=== PATIENT | male | born 1930 | race Caucasian/White ===

== ENCOUNTER 2018-11-18 01:48 | Inpatient (IN) ==
[2018-11-18] MEDS ORDERED: NITROGLYCERIN TOP ONE (02:00)
[2018-11-18] MEDS ORDERED: LASIX IV ONE (02:00)
--- NOTE | 2018-11-18 02:06 | PROVIDER DOCUMENTATION ---
HPI-Respiratory General - General Chief Complaint: Shortness of Breath Stated Complaint: TROUBLE BREATHING Time Seen by Provider: 11/18/18 01:55 Source: patient Allergies/Adverse Reactions: Patient Allergies Allergy/AdvReac Type Severity Reaction Status Date / Time Sulfa (Sulfonamide Allergy Severe Unknown Verified 12/30/16 16:11 Antibiotics) Home Medications: Home Medication List Medication Instructions Recorded Confirmed Last Taken Type Losartan/Hydrochlorothiazide 1 each PO DAILY 04/14/14 07/18/18 05/07/17 History [Losartan-Hctz 100-25 mg Tab] Omeprazole 20 mg PO DAILY 04/14/14 07/18/18 05/07/17 History Tamsulosin [Flomax] 0.4 mg PO DAILY 04/14/14 07/18/18 05/07/17 History Trazodone [Desyrel] 75 mg PO QHS 03/19/15 07/18/18 05/07/17 History Alprazolam 1 mg PO TID 02/26/16 07/18/18 05/07/17 History Diltiazem HCl [Cardizem Cd] 360 mg PO DAILY 12/30/16 07/18/18 05/07/17 History Furosemide [Lasix] 20 mg PO PRN PRN 12/30/16 07/18/18 05/07/17 History Nitroglycerin [Nitrostat] 0.4 mg SL PRN PRN 12/30/16 07/18/18 05/07/17 History Polyethylene Glycol 3350 [Miralax] 17 gm PO DAILY 12/30/16 07/18/18 05/07/17 History Potassium Chloride E.r. [Klor-Con] 10 meq PO PRN PRN 12/30/16 07/18/18 05/07/17 History Rivaroxaban [Xarelto] 10 mg PO DAILY 12/30/16 07/18/18 05/07/17 History Albuterol Sulfate [Proair Hfa] 1 puff INH PRN PRN 07/18/18 07/18/18 Unknown History Cetirizine [Zyrtec] 10 mg PO DAILY 07/18/18 07/18/18 Unknown History Dextran/Hypromellose/Glycerin 1 drop BOTH EYES HS 07/18/18 07/18/18 Unknown History [Genteal Tears 0.1%-0.2%-0.3%] Fluticasone 50 Mcg Nasal [place] 1 spray KD DAILY 07/18/18 07/18/18 Unknown History [Flonase] Hydrocodone/Acetaminophen [[place] 0.5 tab PO PRN PRN 07/18/18 07/18/18 Unknown History 5-325 Tablet] - History of Present Illness-Resp Nature of Presenting Problem: Patient is a 88 year old white male with history of atrial fibrillation, CHF, CAD,HTN, dementia, hearing loss, and kidney disease, followed by Dr. Sidhu and Dr. Wilkerson who presents with increasing shortnes of breath, leg swelling, and orthopnea since yesterday. Denies chest pain. Quality of Pain: reports: none Onset/Duration: reports: 24 hours ago Timing: reports: getting worse Cough Quality/Degree: reports: no cough Similar Symptoms Previously?: Yes Recently seen or treated by another doctor?: Yes (Dr. Sidhu) Review of Systems - Adult - REVIEW OF SYSTEMS - ADULT Constitutional: denies: chills, fever Eyes: reports: no symptoms reported Ears, Nose, Mouth & Throat: reports: no symptoms reported Cardiovascular: reports: edema, orthopnea. denies: chest pain Respiratory: reports: shortness of breath Gastrointestinal: reports: no symptoms reported Genitourinary: reports: no symptoms reported Musculoskeletal: reports: no symptoms reported Integumentary: reports: no symptoms reported Neurological: reports: no symptoms reported Psychiatric: reports: see HPI Endocrine: reports: no symptoms reported Hematologic/Lymphatic: reports: no symptoms reported Allergic/Immunologic: reports: no symptoms reported All Other Systems: Reviewed and Negative Past History - Adult - PAST MEDICAL HISTORY-ADULT Review of Records: reports: Old Records Reviewed, Nursing Assessment Review, Medications Reviewed, Social history reviewed & non-contributory. Major Childhood Illnesses: reports: denies history Cardiovascular: reports: A-Fib, CHF, HTN Respiratory: reports: denies history Gastrointestinal: reports: denies history Obstetrical/Gynecological: reports: denies history Genitourinary: reports: kidney disease, prostate cancer Musculoskeletal: reports: denies history Neurological: reports: denies history Psychiatric: reports: anxiety Endocrine/Immune: reports: cancer Other Conditions: reports: denies history - PRIOR SURGERIES/PROCEDURES Surgical/Procedure History: reports: CABG, other - PRIOR HOSPITALIZATIONS Prior Hospitalizations: reports: for other non-related - IMMUNIZATION STATUS Childhood Immunizations: See Nurse Assessment Flu Vaccine: See Nurse Assessment - FAMILY HISTORY Family History: reviewed, not pertinent Physical Exam-General - CONSTITUTIONAL General Appearance: alert, no apparent distress, other (nondiaphoretic) - EYES Eyes: other (clear) - HEAD, EARS, NOSE, MOUTH & THROAT HENMT: moist mucous membranes - NECK Neck: supple - RESPIRATORY Respiratory: no accessory muscle use, decreased breath sounds, rales, wheezing - CARDIOVASCULAR Cardiovascular: irregularly irregular - GASTROINTESTINAL (ABDOMEN) Abdominal Exam: normal bowel sounds, non tender, soft - MUSCULOSKELETAL Back Exam: normal inspection Extremity: non-tender, swelling Peripheral Pulses: radial (R): 2+ - SKIN Integumentary: warm/dry - NEUROLOGIC Neurologic: other (nonfocal, uncooperative to exam) - PSYCHIATRIC Psych/Mental Status: anxious, other (demented) Progress - PLAN OF CARE/RESULTS Progress/Plan/Lab Results: Vital Signs - 8 hr 11/18/18 02:00 Temperature 98.8 F Pulse Rate 92 H Respiratory Rate 22 Blood Pressure 171/124 O2 Sat by Pulse Oximetry 88 L Laboratory Results - last 24 hr 11/18/18 11/18/18 11/18/18 02:13 02:13 02:13 WBC 5.79 RBC 5.07 Hgb 12.1 L Hct 39.0 L MCV 76.9 L MCH 23.9 L MCHC 31.0 L RDW Std Deviation 16.7 H Plt Count 247 MPV 12.0 H Immature Gran % (Auto) 0.2 Neut % (Auto) 64.8 Lymph % (Auto) 14.5 L [place] % (Auto) 17.8 H Eos % (Auto) 2.2 Baso % (Auto) 0.5 Immature Gran # (Auto) 0.01 Neut # (Auto) 3.75 Lymph # (Auto) 0.84 L [place] # (Auto) 1.03 H Eos # (Auto) 0.13 Baso # (Auto) 0.03 PT INR Sodium 133 L Potassium 3.5 Chloride 98 Carbon Dioxide 21 L Anion Gap 14 BUN 23 H Creatinine 1.9 H Estimated GFR/1.73 m2 34 BUN/Creatinine Ratio 12 Glucose 129 H Calculated Osmolality 272 Calcium 8.5 L Troponin T 0.018 Ply-T-Bzoitbogqdy Pept 11/18/18 11/18/18 02:13 02:13 WBC RBC Hgb Hct MCV MCH MCHC RDW Std Deviation Plt Count MPV Immature Gran % (Auto) Neut % (Auto) Lymph % (Auto) [place] % (Auto) Eos % (Auto) Baso % (Auto) Immature Gran # (Auto) Neut # (Auto) Lymph # (Auto) [place] # (Auto) Eos # (Auto) Baso # (Auto) PT 30.6 H INR 2.77 Sodium Potassium Chloride Carbon Dioxide Anion Gap BUN Creatinine Estimated GFR/1.73 m2 BUN/Creatinine Ratio Glucose Calculated Osmolality Calcium Troponin T Yru-R-Rkkmxjxnnta Pept 23095 H Orders Category Date Time Status Cardiac Monitoring DIRECTED Care 11/18/18 02:01 Active Saline Loc NOW Care 11/18/18 02:02 Active CHEST-PORTABLE [RAD] Stat Exams 11/18/18 02:02 Taken BMP [BASIC METABOLIC PANEL] [CHEM] Stat Lab 11/18/18 02:13 Completed BNP [PRO B-NATRIURETIC PEPTIDE] Stat Lab 11/18/18 02:13 Completed CBC WITH ELECTRONIC DIFF [HEME] Stat Lab 11/18/18 02:13 Completed PT [PROTIME WITH INR] [COAG] Stat Lab 11/18/18 02:13 Completed TROPONIN T Stat Lab 11/18/18 02:13 Completed Furosemide [Lasix] Med 11/18/18 02:00 Discontinued 40 mg IV NOW ONE Nitroglycerin Med 11/18/18 02:00 Discontinued 0.5 inch TOP NOW ONE Oxygen Device Stat Oth 11/18/18 02:03 Active EKG [EKG] Stat Ther 11/18/18 02:01 Ordered Result Diagrams: 11/18/18 02:13 11/18/18 02:13 - EKG 1 Time of EKG reading by physician:: 02:51 EKG Read and Signed by:: Efrain Mosher Rate: 76 Rhythm: atrial fibrillation [place]: normal QRS: other (low voltage QRS) ST Wave: non-specific ST changes - XRAY 1 XRAY Study: Chest XRAY Interpretation: CHF,cardiomegaly - CONSULTS/PCP/HOSPITALIST Notification #1 *Consult/PCP/Hospitalist*: Dr. Sidhu Time Discussed: 03:30 Consult Disposition: Admit Departure - Departure Date of Disposition Decision: 11/18/18 Time of Disposition Decision: 03:47 DIAGNOSIS: Chronic atrial fibrillation CHF (congestive heart failure) Qualifiers: Heart failure type: unspecified Heart failure chronicity: acute on chronic Qualified Code(s): I50.9 - Heart failure, unspecified Disposition: ADMITTED INPATIENT 09 Certified Medical Emergency: Emergent Condition: Stable Referrals and Follow-Ups: Jack Sidhu MD [Primary Care Provider] - - Critical Care Note This patient required my direct & personal management of CC.: Yes Total Time (mins): 92 Critical Care Statement: This patient required my direct personal management to treat or rule out processes, the absence of which, could potentiallly result in sudden, clinically significant life or limb threatening deterioration. Attestation - Physician/ [place]RA Attestation Patient care was provided by Advanced Practice Provider:: No The physician spent face to face time with patient:: Yes Advanced Practice Provider documentation review:: Supervising physician onsite and consulted in the evaluation and care of this patient. The physician did have a face to face encounter with the patient.
[2018-11-18 02:48] LABS: BASO# 0.03 X1000 (0.0-0.2); BASO% 0.5 % (0.0-0.8); EOS# 0.13 X1000 (0.0-0.7); EOS% 2.2 % (0.0-10.0); HEMOGLOBIN 12.1 g/dL (14.0-18.0); IMM GRAN# 0.01 X1000 (0.0-0.04); IMM GRAN% 0.2 % (0.0-0.5); LYMPH# 0.84 X1000 (1.2-3.4); LYMPH% 14.5 % (20.5-51.1); MCH 23.9 PG (27-31); MCV 76.9 FL (81-99); MONO# 1.03 X1000 (0.11-0.59); MONO% 17.8 % (1.7-9.3); NEUT# 3.75 X1000 (1.4-6.5); NEUT% 64.8 % (42.2-75.2); PLT 247 X1000 (130-400); RBC 5.07 XMIL (4.7-6.1); RDW 16.7 % (11.5-14.5); WBC 5.79 X1000 (4.8-10.8)
[2018-11-18 03:15] LABS: CALCIUM 8.5 mg/dL (8.8-10.2); CREATININE 1.9 mg/dL (0.7-1.2); POTASSIUM 3.5 mmol/L (3.5-5.1)
[2018-11-18 03:21] LABS: INR 2.77; PROTIME 30.6 Seconds (11.0-16.0)
[2018-11-18 04:57] LABS: BILIRUBIN URINE NEGATIVE (NEGATIVE); BLOOD URINE 1+ (NEGATIVE); CLARITY CLEAR (CLEAR); COLOR STRAW; GLUCOSE URINE NEGATIVE (NEGATIVE); KETONE URINE NEGATIVE (NEGATIVE); LEUKOCYTES URINE NEGATIVE (NEGATIVE); NITRITE URINE NEGATIVE (NEGATIVE); PH URINE 6.5; PROTEIN URINE 2+(100 mg/dL) mg/dL (NEGATIVE); SP GRAVITY URINE 1.005; UROBILINOGEN URINE NORMAL
[2018-11-18 05:10] LABS: URINE BACTERIA 2+ /HFP; URINE EPITHELIAL CELLS <10 /HPF (<10); URINE RBC <10 /HPF (<10); URINE WBC <10 /HPF (<10)
--- NOTE | 2018-11-18 05:10 | EKG Report ---
Test Performed on : 11/18/2018 02:50:28 AM Test Reason : CP Blood Pressure : / mmHG Vent. Rate : 076 BPM Atrial Rate : 120 BPM P-R Int : 000 ms QRS Dur : 090 ms QT Int : 430 ms P-R-T Axes : 000 -27 080 degrees QTc Int : 483 ms Atrial fibrillation. Low voltage QRS Cannot rule out Anterior infarct , age undetermined Abnormal ECG When compared with ECG of 18-JUL-2018 11:03, (Unconfirmed) Minimal criteria for Anterior infarct are now present QT has lengthened Unconfirmed Result
[2018-11-18 05:11] LABS: URINE SOURCE CATH
--- NOTE | 2018-11-18 07:00 | Diag Imaging Result Doc PS360 ---
EXAM: CHEST-PORTABLE 11/18/2018 HISTORY: sob TECHNIQUE: Erect AP portable at 0225 COMMENT: There is cardiomegaly, interstitial and alveolar pulmonary edema. This is much worse than on 10/30/2018. IMPRESSION: Pulmonary edema and cardiomegaly. Electronically signed by [place] 11/18/2018 6:58 AM
[2018-11-18] MEDS ORDERED: NORCO-5 PO PRN (11:07)
[2018-11-18] MEDS ORDERED: XANAX PO PRN (11:07)
[2018-11-18] MEDS: CARDIZEM CD PO SCH (11:59)
[2018-11-18] MEDS: PRILOSEC PO SCH (12:00)
[2018-11-18] MEDS: FLOMAX PO SCH (12:00)
--- NOTE | 2018-11-18 13:37 | HISTORY AND PHYSICAL ---
CHIEF COMPLAINT: Edema, shortness of breath. HISTORY OF PRESENT ILLNESS: The patient is an 88-year-old male who is extremely hard of hearing. The history is per his daughter. She notes that he started feeling bad last night. Prior to that, he was in his usual state of health. He had no complaints of shortness of breath, chest pain, or palpitations. No complaints of fevers or chills. She states that at some point last night he hit his Life Alert, and they notified her. She came and checked on him. He stated he was short of breath and having difficulty breathing and wanted oxygen. He was brought to the ER and was felt to be in congestive heart failure exacerbation. He was given IV Lasix, and she notes that he has had a large urine output since then. SOCIAL HISTORY: Patient is , lives at home, is cared for by his daughter. He does not smoke or drink. ALLERGIES: Sulfa. MEDICATIONS: Losartan [*] 100/25. Omeprazole. Diltiazem. Xarelto 10 mg. PAST MEDICAL HISTORY: History of congestive heart failure, systolic. History of prostate cancer. Atrial fibrillation, currently rate controlled. Hypertension. Anxiety. Prostate cancer. Known coronary artery disease status post CABG. Has a history of extremely poor hearing. REVIEW OF SYSTEMS: As noted above. The patient was in his usual state of health until yesterday when he suddenly became extremely short of breath. Currently, he is actually feeling better although not quite to his baseline since arriving to the ER and being given high-dose Lasix. Denies any current chest pain, palpitations. Denies any fevers or chills. Denies any dysuria or frequency. Denies hesitancy, polyuria or polydipsia. FAMILY HISTORY: Noncontributory. PHYSICAL EXAMINATION: Temperature 98, pulse 92, respiratory rate 20, BP 171/124, currently 160/100. GENERAL: Patient is awake and alert. He is currently in no respiratory distress. He appears pretty close back to his baseline respiratory status. HEENT: Normocephalic. NECK: Supple. CARDIOVASCULAR: Regular rate. No murmurs. CHEST: Mild wheezing. No appreciable crackles currently. Poor but equal air movement. ABDOMEN: Soft, nondistended. EXTREMITIES: Moves all extremities. NEUROLOGIC: No changes. SKIN: No rashes. He does have 1+ edema in his bilateral lower extremities. ASSESSMENT: 1. Systolic congestive heart failure exacerbation. 2. Atrial fibrillation, currently rate controlled on anticoagulant. 3. Hypertension. 4. Poor hearing. 5. Others. PLAN: We will continue patient in the hospital. Continue to follow. Continue Lasix. Further orders as needed. cc: Jack Sidhu MD
[2018-11-18] MEDS: LASIX IV SCH (15:18)
[2018-11-18] MEDS: XARELTO PO SCH (16:46)
[2018-11-18] MEDS: TEARISOL OPH SOLUTION BOTH EYES SCH (21:03)
[2018-11-18] MEDS: DESYREL PO SCH (21:03)
[2018-11-18] MEDS: MIRALAX PO SCH (21:03)
[2018-11-19] MEDS: LASIX IV SCH ×2 (01:38→14:41)
[2018-11-19] MEDS: PRILOSEC PO SCH (06:10)
[2018-11-19 06:49] LABS: HEMATOCRIT 42.3 % (42.0-52.0); HEMOGLOBIN 13.1 g/dL (14.0-18.0); MCH 23.6 PG (27-31); MCV 76.1 FL (81-99); MPV 11.9 FL (7.4-10.4); RBC 5.56 XMIL (4.7-6.1); RDW 16.6 % (11.5-14.5); WBC 6.73 X1000 (4.8-10.8)
[2018-11-19 07:01] LABS: ALBUMIN 2.8 g/dL (3.5-5.0); CALCIUM 8.4 mg/dL (8.8-10.2); MAGNESIUM 1.6 mg/dL (1.5-2.7); POTASSIUM 3.4 mmol/L (3.5-5.1); TOTAL BILIRUBIN 0.7 mg/dL (0.20-1.00); TOTAL PROTEIN 6.6 g/dL (6.3-8.3)
[2018-11-19] MEDS: VENTOLIN HFA INH PRN ×3 (08:37→20:45)
[2018-11-19] MEDS: FLOMAX PO SCH (09:23)
[2018-11-19] MEDS: ZYRTEC PO SCH (09:23)
[2018-11-19] MEDS: CARDIZEM CD PO SCH (09:23)
[2018-11-19] MEDS: FLONASE NAS SCH (09:23)
[2018-11-19] MEDS: TEARISOL OPH SOLUTION BOTH EYES SCH ×2 (12:10→22:33)
[2018-11-19] MEDS: XARELTO PO SCH (18:12)
[2018-11-19] MEDS: DESYREL PO SCH (22:33)
[2018-11-19] MEDS: MIRALAX PO SCH (22:33)
--- NOTE | 2018-11-20 01:33 | PROGRESS NOTE ---
DATE: 11/19/2018 SUBJECTIVE: The patient has no new complaints. PHYSICAL EXAMINATION: Vital Signs: Stable. Temperature 99, respiratory rate 20, BP 147/79. General: The patient is awake and alert. He is currently in no distress. HEENT: Normocephalic. CARDIOVASCULAR: Regular rate. Chest: Clear and nonlabored with no crackles. Abdomen: Soft and nondistended. Extremities: Moves all extremities. No edema. ASSESSMENT: 1. Systolic congestive heart failure exacerbation. The patient currently is [*]. 2. Atrial fibrillation, currently rate controlled. 3. Hypertension. 4. Chronic renal failure, stable. PLAN: We will continue the patient in the hospital. [*]133. We will recheck in the a.m. We will decrease his Lasix, if he tolerates hopefully home in the morning. cc: Jack Sidhu MD
[2018-11-20] MEDS: LASIX IV SCH (01:43)
[2018-11-20] MEDS: PRILOSEC PO SCH (06:13)
[2018-11-20] MEDS: VENTOLIN HFA INH PRN ×2 (07:50→14:41)
[2018-11-20] MEDS: FLOMAX PO SCH (08:25)
[2018-11-20] MEDS: CARDIZEM CD PO SCH (08:25)
[2018-11-20] MEDS: LASIX PO SCH ×2 (08:26→20:58)
[2018-11-20] MEDS: FLONASE NAS SCH (08:26)
[2018-11-20] MEDS: ZYRTEC PO SCH (08:26)
[2018-11-20] MEDS: TEARISOL OPH SOLUTION BOTH EYES SCH ×2 (08:27→20:58)
[2018-11-20] MEDS: XARELTO PO SCH (17:23)
[2018-11-20] MEDS: MIRALAX PO SCH (20:58)
[2018-11-20] MEDS: DESYREL PO SCH (20:58)
--- NOTE | 2018-11-21 03:02 | PROGRESS NOTE ---
DATE: 11/20/2018 SUBJECTIVE: The patient notes he is feeling okay. Denies any new complaints. Denies any chest pain, palpitations. States his breathing has improved. PHYSICAL EXAMINATION: Vital Signs: Temperature 98.7, pulse 87, respiratory rate 18, BP 145/90. General: Patient is awake, alert, very pleasant to talk with. HEENT: Normocephalic. Neck: Supple. Cardiovascular: Regular rate. No murmurs. Chest: Clear, nonlabored. No crackles, no wheezing. Abdomen: Soft, nondistended. Extremities: Moves all extremities. Neurologic: The patient has no focal neurological changes, although he does have significantly decreased hearing. This has been chronic for several years. ASSESSMENT: 1. Systolic congestive heart failure. 2. Chronic renal failure, stable, with creatinine 1.9. 3. Mild leukocytosis. 4. Mild hyponatremia at 133. 5. Atrial fibrillation, with RVR, currently on anticoagulation. 6. Hypertension. 7. Poor hearing. PLAN: We will continue the patient in the hospital. Continue rate control with Cardizem. Continue Lasix. Further orders as needed. cc: Jack Sidhu MD
[2018-11-21] MEDS: PRILOSEC PO SCH (06:18)
[2018-11-21 07:20] LABS: HEMATOCRIT 40.4 % (42.0-52.0); HEMOGLOBIN 12.6 g/dL (14.0-18.0); MCH 23.3 PG (27-31); MCHC 31.2 g/dL (33-37); MCV 74.8 FL (81-99); MPV 11.7 FL (7.4-10.4); RBC 5.4 XMIL (4.7-6.1); RDW 16.3 % (11.5-14.5); WBC 8.06 X1000 (4.8-10.8)
[2018-11-21 07:56] LABS: ALBUMIN 2.7 g/dL (3.5-5.0); CALCIUM 8.4 mg/dL (8.8-10.2); CREATININE 1.7 mg/dL (0.7-1.2); MAGNESIUM 1.6 mg/dL (1.5-2.7); TOTAL BILIRUBIN 0.9 mg/dL (0.20-1.00); TOTAL PROTEIN 6.6 g/dL (6.3-8.3)
[2018-11-21] MEDS ORDERED: KLOR-CON PO ONE (08:07)
[2018-11-21] MEDS: FLOMAX PO SCH (09:15)
[2018-11-21] MEDS: CARDIZEM CD PO SCH (09:15)
[2018-11-21] MEDS: LASIX PO SCH (09:15)
[2018-11-21] MEDS: ZYRTEC PO SCH (09:15)
[2018-11-21] MEDS: TEARISOL OPH SOLUTION BOTH EYES SCH (09:16)
[2018-11-21] MEDS: FLONASE NAS SCH (09:16)
[2018-11-21 11:28] VITALS: BP 139/94
[2018-11-21] MEDS: VENTOLIN HFA INH PRN (12:22)
--- NOTE | 2018-11-22 05:32 | DISCHARGE SUMMARY ---
ADMISSION DATE: 11/20/2018 DISCHARGE DATE: 11/21/2018 DISCHARGE DIAGNOSES: 1. Congestive heart failure with exacerbation. 2. Chronic hypoxic respiratory failure, acute on chronic, improved. 3. Chronic atrial fibrillation, stable. 4. Volume overload, improved. The patient was negative approximately 6 L during the hospital stay. 5. Leukocytosis, resolved. 6. Hypokalemia, improved. 7. Acute on chronic renal failure, improved back to his baseline. CONSULTATIONS: None. PROCEDURES: None. BRIEF HOSPITAL COURSE: The patient is a 88-year-old male who presented to the hospital and was treated in the usual fashion. Placed on IV Lasix and fluid restriction. The patient actually does a good job with fluid restriction at home. Unfortunately, he does have chronic renal failure, which is likely the cause of his acute congestive heart failure, systolic, with exacerbation at this point. Thankfully, he had an uneventful hospital course. He was placed on IV Lasix and over the next 2 days was slowly weaned down. On discharge, patient is awake and alert. He is in no distress. DISCHARGE DISPOSITION: Patient will be discharged home. Discussed with the daughter how to treat his symptoms (i.e., he will take Lasix 40 mg daily and will check his weight daily). If his weight goes up by more than 2 pounds in 2 days, then he will take Lasix 40 mg twice a day. If this does not improve over the next 2 or 3 days, then she will call the office and we will adjust from there. No other changes made on his chronic home medications or diet. He already has a fluid restriction in place, which he tolerates very well. He will follow up in the office in 1 to 2 weeks to recheck his labs. cc: Jack Sidhu MD
== END 2018-11-21 13:18 | disposition home health service (06) | DRG 291 ==
LOC: P.ED 01:48 → P.MEDSURG 01:48
PROVIDERS: ADMIT Family Medicine; ATTEND Family Medicine
CPT/HCPCS: 71010; 71045; 80048; 80053; 81001; 83735; 83880; 84484; 85025; 85027; 85610; 87088; 93005; 94640; 94761; 96374; 99285; A9270; J1940

== ENCOUNTER 2019-01-30 15:46 | Inpatient (IN) ==
[2019-01-30] MEDS ORDERED: NS 1,000 ML IV PRN (16:09)
--- NOTE | 2019-01-30 16:09 | Diag Imaging Result Doc PS360 ---
EXAM: CT HEAD W/O CONTRAST INDICATION: stroke TECHNIQUE: This exam was performed using automated exposure control, adjustment of mA or kV according to patient size, and/or use of iterative reconstruction technique. COMPARISON: None. FINDINGS: There is moderate diffuse brain atrophy. There is mild patchy low attenuation in the periventricular and subcortical white matter suggesting mild microangiopathy. There is no definite acute infarct given the limited sensitivity of CT versus MRI. There is no discrete intracranial mass, mass effect, or intracranial hemorrhage. There is an excessive amount of craniofacial soft tissue gas near the base of the skull. It is probably intravascular gas given that there is no history of significant trauma. There appears to be a fair amount of gas in the cavernous sinuses. The source of this gas is unknown. It could have been interval used via an IV. Given the amount of gas, there is certainly a risk for cerebral air embolus. Please correlate clinically. IMPRESSION: 1.Excessive amount of soft tissue gas that is probably intravascular including a fair amount of gas in the cavernous sinuses. Please see above discussion. 2.Atrophy and mild chronic appearing white matter changes but no definite acute intracranial pathology by CT. Electronically signed by Stan Huitron 01/30/2019 4:07 PM
[2019-01-30 16:23] LABS: BASO# 0.01 X1000 (0.0-0.2); BASO% 0.1 % (0.0-0.8); HEMATOCRIT 36.5 % (42.0-52.0); HEMOGLOBIN 11.4 g/dL (14.0-18.0); IMM GRAN# 0.08 X1000 (0.0-0.04); IMM GRAN% 0.5 % (0.0-0.5); LYMPH# 0.68 X1000 (1.2-3.4); LYMPH% 3.9 % (20.5-51.1); MCH 23.7 PG (27-31); MCHC 31.2 g/dL (33-37); MCV 75.9 FL (81-99); MONO# 1.58 X1000 (0.11-0.59); MONO% 9.1 % (1.7-9.3); MPV 12.4 FL (7.4-10.4); NEUT# 15.07 X1000 (1.4-6.5); NEUT% 86.4 % (42.2-75.2); PLT 220 X1000 (130-400); RBC 4.81 XMIL (4.7-6.1); RDW 18.9 % (11.5-14.5); WBC 17.42 X1000 (4.8-10.8)
[2019-01-30 16:37] LABS: INR 2.41; PROTIME 27.4 Seconds (11.0-16.0); PTT 46.3 Seconds (22.3-41.8)
--- NOTE | 2019-01-30 17:04 | PROVIDER DOCUMENTATION ---
This chart was entered by Cierra Justice Scribe, acting as scribe for Kimberly Ervin MD. HPI-Neurological Disorder - General Chief Complaint: Stroke-Like Symptoms Stated Complaint: WEAKNESS/ FACE DROOPING Time Seen by Provider: 01/30/19 15:38 Source: patient Allergies/Adverse Reactions: Patient Allergies Allergy/AdvReac Type Severity Reaction Status Date / Time Sulfa (Sulfonamide Allergy Severe Unknown Verified 01/30/19 15:54 Antibiotics) Home Medications: Home Medication List Medication Instructions Recorded Confirmed Last Taken Type Omeprazole 20 mg PO DAILY 04/14/14 11/18/18 05/07/17 History Tamsulosin [Flomax] 0.4 mg PO DAILY 04/14/14 11/18/18 05/07/17 History Trazodone [Desyrel] 75 mg PO QHS 03/19/15 11/18/18 05/07/17 History Alprazolam 1 mg PO TID 02/26/16 11/18/18 05/07/17 History Diltiazem HCl [Cardizem Cd] 360 mg PO DAILY 12/30/16 11/18/18 05/07/17 History Furosemide [Lasix] 20 mg PO PRN PRN 12/30/16 11/18/18 05/07/17 History Nitroglycerin [Nitrostat] 0.4 mg SL PRN PRN 12/30/16 11/18/18 05/07/17 History Polyethylene Glycol 3350 [Miralax] 17 gm PO HS 12/30/16 11/18/18 05/07/17 History Potassium Chloride E.r. [Klor-Con] 10 meq PO PRN PRN 12/30/16 11/18/18 05/07/17 History Rivaroxaban [Xarelto] 15 mg PO DAILY 12/30/16 11/18/18 05/07/17 History Albuterol Sulfate [Proair Hfa] 2 puff INH Q6H PRN PRN 07/18/18 11/18/18 Unknown History Cetirizine [Zyrtec] 10 mg PO DAILY 07/18/18 11/18/18 Unknown History Dextran/Hypromellose/Glycerin 1 drop BOTH EYES BID 07/18/18 11/18/18 Unknown History [Genteal Tears 0.1%-0.2%-0.3%] Fluticasone 50 Mcg Nasal [place] 1 spray KD DAILY 07/18/18 11/18/18 Unknown History [Flonase] Hydrocodone/Acetaminophen [Bogard 0.5 tab PO PRN PRN 07/18/18 11/18/18 Unknown History 5-325 Tablet] Furosemide [Lasix] 40 mg PO DAILY #30 tab 11/19/18 Unknown Rx - History of Present Illness-Neuro Nature of Presenting Problem: 88 yom presents to ed with cc of stroke like symptoms. EMS reports pt lives at assisted living. Reports at 1330 they noticed left facial droop and left sided weakness. Hx of afib and rvr. EMS gave 500 cc Bolus. Severity: reports: mild Onset/Duration: reports: this evening Timing: reports: still present Review of Systems - Adult - REVIEW OF SYSTEMS - ADULT Constitutional: denies: chills, fever, fatique Eyes: reports: no symptoms reported Ears, Nose, Mouth & Throat: denies: ear pain, sinus problem, throat pain Cardiovascular: reports: no symptoms reported Respiratory: reports: no symptoms reported Gastrointestinal: denies: abdominal pain, nausea, vomiting Genitourinary: reports: no symptoms reported Musculoskeletal: denies: bone pain, joint pain, neck pain Integumentary: denies: hives, hair loss Neurological: reports: see HPI. denies: ataxia, dizziness/vertigo, numbness, paresthesia, tremors Psychiatric: denies: anti-depressant use, panic attacks Endocrine: denies: change in skin pigment, cold intolerance, polyuria Hematologic/Lymphatic: reports: no symptoms reported Allergic/Immunologic: reports: no symptoms reported All Other Systems: Reviewed and Negative Past History - Adult - PAST MEDICAL HISTORY-ADULT Review of Records: reports: Nursing Assessment Review, Medications Reviewed Major Childhood Illnesses: reports: denies history Cardiovascular: reports: A-Fib, CHF, HTN Respiratory: reports: denies history Gastrointestinal: reports: denies history Obstetrical/Gynecological: reports: denies history Genitourinary: reports: kidney disease, prostate cancer Musculoskeletal: reports: denies history Neurological: reports: denies history Psychiatric: reports: anxiety Endocrine/Immune: reports: cancer Other Conditions: reports: denies history - PRIOR SURGERIES/PROCEDURES Surgical/Procedure History: reports: CABG, other - PRIOR HOSPITALIZATIONS Prior Hospitalizations: reports: for other non-related - IMMUNIZATION STATUS Childhood Immunizations: See Nurse Assessment Flu Vaccine: See Nurse Assessment - FAMILY HISTORY Family History: reviewed, not pertinent - SOCIAL HISTORY Smoking: denies Substance Use: none/never Physical Exam- Neurological - Physical Exam-Neuro Initial Vital Signs Reviewed: Yes General Appearance: alert Eye Exam: bilateral eye: PERRL, EOMI HENMT: normocephalic/atraumatic Head Injury: no evidence of injury Neck: non-tender, supple Respiratory: chest non-tender, lungs clear Cardiovascular: normal peripheral pulses, no edema Abdominal Exam: normal bowel sounds, non tender, soft Lymphatic: no adenopathy Extremity: non-tender engineering faculty Exam: PERRL Coordination/Gait: normal finger to nose Motor/Sensory: no motor deficit Neurologic: other (lightly left facial droops, speech slightly slurry but unknown baseline) Integumentary: negative: rash Psych/Mental Status: oriented x 3 - Glascow Coma Scale Best Eye Response: (4) open spontaneously Best Verbal Response: (5) oriented Best Motor Response: (6) obeys commands Progress - PLAN OF CARE/RESULTS Progress/Plan/Lab Results: Vital Signs - 8 hr 01/30/19 15:50 01/30/19 16:06 01/30/19 16:15 Temperature 98.8 F Pulse Rate 93 H 88 89 Respiratory Rate 20 24 26 H Blood Pressure 139/83 145/75 139/86 O2 Sat by Pulse Oximetry 97 97 94 L Laboratory Results - last 24 hr 01/30/19 01/30/19 01/30/19 16:10 16:10 16:10 WBC 17.42 H RBC 4.81 Hgb 11.4 L Hct 36.5 L MCV 75.9 L MCH 23.7 L MCHC 31.2 L RDW Std Deviation 18.9 H Plt Count 220 MPV 12.4 H Immature Gran % (Auto) 0.5 Neut % (Auto) 86.4 H Lymph % (Auto) 3.9 L Harrison % (Auto) 9.1 Eos % (Auto) 0.0 Baso % (Auto) 0.1 Immature Gran # (Auto) 0.08 H Neut # (Auto) 15.07 H Lymph # (Auto) 0.68 L Harrison # (Auto) 1.58 H Eos # (Auto) 0.00 Baso # (Auto) 0.01 Segmented Neutrophils Not Reportable PT INR PTT (Actin FS) Sodium 138 Potassium 4.1 Chloride 101 Carbon Dioxide 16 L Anion Gap 22 BUN 51 H Creatinine 3.1 H Estimated GFR/1.73 m2 19 BUN/Creatinine Ratio 16 Glucose 158 H POC Glucose Calculated Osmolality 293 Calcium 8.2 L Total Bilirubin 0.50 AST 31 ALT 11 Alkaline Phosphatase 83 Troponin T 0.093 H Total Protein 7.0 Albumin 3.3 L Globulin 4.0 Albumin/Globulin Ratio 1.0 01/30/19 01/30/19 16:10 16:16 WBC RBC Hgb Hct MCV MCH MCHC RDW Std Deviation Plt Count MPV Immature Gran % (Auto) Neut % (Auto) Lymph % (Auto) Harrison % (Auto) Eos % (Auto) Baso % (Auto) Immature Gran # (Auto) Neut # (Auto) Lymph # (Auto) Harrison # (Auto) Eos # (Auto) Baso # (Auto) Segmented Neutrophils PT 27.4 H INR 2.41 PTT (Actin FS) 46.3 H Sodium Potassium Chloride Carbon Dioxide Anion Gap BUN Creatinine Estimated GFR/1.73 m2 BUN/Creatinine Ratio Glucose POC Glucose 164 H Calculated Osmolality Calcium Total Bilirubin AST ALT Alkaline Phosphatase Troponin T Total Protein Albumin Globulin Albumin/Globulin Ratio Orders Category Date Time Status Cardiac Monitoring DIRECTED Care 01/30/19 16:09 Active Finger Stick Blood Sugar (ED) DIRECTED Care 01/30/19 16:09 Active Misc. NRSG Communication Order DIRECTED Care 01/30/19 16:09 Active Saline Loc NOW Care 01/30/19 16:09 Active CHEST-PORTABLE [RAD] Stat Exams 01/30/19 16:[address] HEAD W/O CONTRAST [CT] Stat Exams 01/30/19 15:37 Completed CBC WITH ELECTRONIC DIFF [HEME] Stat Lab 01/30/19 16:10 Completed COMPREHENSIVE METABOLIC PANEL [CHEM] Stat Lab 01/30/19 16:10 Completed PROTIME WITH INR [COAG] Stat Lab 01/30/19 16:10 Completed PTT [COAG] Stat Lab 01/30/19 16:10 Completed TROPONIN T Stat Lab 01/30/19 16:10 Completed 0.9% Sodium Chloride Inj [Ns] 1,000 ml Med 01/30/19 16:09 Active IV 500 mls/hr Result Diagrams: 01/30/19 16:10 01/30/19 16:10 - REASSESSMENT Reassessment #1 Time Reassessed: 16:43 (Pt family at bedside refused for patient to go to [facility]. They want to be admitted at [facility]) Reassessment Comment: Hospitalist paiged for admission - EKG 1 Time of EKG reading by physician:: 15:54 EKG Read and Signed by:: Kimberly Ervin EKG Interpretation (*Must complete 3 of following elements*): Abnormal (cannot rule out anterior infarct age undetermined) Rate: 94 Rhythm: afib [place]: normal QRS: other (low voltage) [place] Interval: normal ST Wave: normal - CT/MRI 1 CT Study: Head Impression: Abnormal (TECHNIQUE: This exam was performed using automated exposure control, adjustment of mA or kV according to patient size, and/or use of iterative reconstruction technique. COMPARISON: None. FINDINGS: There is moderate diffuse brain atrophy. There is mild patchy low attenuation in the periventricular and subcortical white matter suggesting mild microangiopathy. There is no definite acute infarct given the limited sensitivity of CT versus MRI. There is no discrete intracranial mass, mass effect, or intracranial hemorr ela. There is an excessive amount of craniofacial soft tissue gas near the base of the skull. It is probably intravascular gas given that there is no history of significant trauma. There appears to be a fair amount of gas in the cavernous sinuses. The source of this gas is unknown. It could have been interval used via an IV. Given the amount of gas, there is certainly a risk for cerebral air embolus. Please correlate clinically. IMPRESSION: 1.Excessive amount of soft tissue gas that is probably intravascular including a fair amount of gas in the cavernous sinuses. Please see above discussion. 2.Atrophy and mild chronic appearing white matter changes but no definite acute intracranial pathology by CT. Electronically signed by Stan Huitron 01/30/2019 4:07 PM) - CONSULTS/PCP/HOSPITALIST Notification #1 *Consult/PCP/Hospitalist*: Dr. Haji Time Discussed: 16:31 Reason/Comments: Said to call the Hospitalist or [facility] he would [facility] them go to [facility] #2 Consult: Dr. Sidhu Time Discussed: 16:59 Consult Disposition: Admit Departure - Departure Date of Disposition Decision: 01/30/19 Time of Disposition Decision: 16:31 DIAGNOSIS: CVA (cerebral vascular accident) Disposition: ADMITTED INPATIENT 09 Certified Medical Emergency: Emergent Condition: Stable Referrals and Follow-Ups: Jack Sidhu MD [Primary Care Provider] - - Critical Care Note This patient required my direct & personal management of CC.: No Attestation - Physician/ KYRA Attestation Patient care was provided by Advanced Practice Provider:: No The physician spent face to face time with patient:: Yes Advanced Practice Provider documentation review:: Supervising physician onsite and consulted in the evaluation and care of this patient. The physician did have a face to face encounter with the patient. - NIH Stroke Scale Level of Consciousness: 0-Alert LOC Questions (ask month and age): 0-Answers Both Correctly LOC Commands (ask to open & close eyes;make a fist, let go): 0-Obeys Both Correctly Best Gaze (horizontal eye movement): 0-Normal Visual (use finger movement, counting or visual threat): 0-No Visual Loss Facial Palsy (show teeth or raise eyebrows & close eyes tght: 1-Minor Paralysis Motor Function-left arm: 0-Normal Motor Function-right arm: 0-Normal Motor Function-left le-Normal Motor Function-right le-Normal Limb Ataxia(hrpgdm-sshs-vlpllo, or heel to worrell): 0-No Ataxia Sensory(pin prick to face,arms,trunk,legs-compare side/side): 0-No Ataxia Best Language(name item/read sentence.Ex-Down to Earth): 0-No Aphasia Dysarthria(Pt read words or say words Ex.Mama,Tip-Top,Thanks: 0-Normal Articulation Extinction and Inattention: 0-Normal NIH Total Score: 1 Modified Wray Score Criteria: 1-no significant disability despite symptoms Stroke tPA Guidelines - Consultation Candidate for:: NOT A CANDIDATE (already on Xarelto) This chart was documented by the indicated scribe, (Cierra Justice Scribe) and accurately reflects the services I performed and decisions made by me, Kimberly Ervin MD, as attested by the provider's signature.
[2019-01-30 17:09] LABS: ALBUMIN 3.3 g/dL (3.5-5.0); CALCIUM 8.2 mg/dL (8.8-10.2); CREATININE 3.1 mg/dL (0.7-1.2); POTASSIUM 4.1 mmol/L (3.5-5.1); TOTAL BILIRUBIN 0.5 mg/dL (0.20-1.00)
[2019-01-30] MEDS ORDERED: ZOFRAN IV PRN (17:53)
[2019-01-30] MEDS ORDERED: NS 1,000 ML IV SCH (18:00)
[2019-01-30] MEDS ORDERED: NS 1,000 ML IV ONE (18:03)
[2019-01-30] MEDS ORDERED: FLOMAX PO ONE (18:03)
--- NOTE | 2019-01-30 18:10 | EKG Report ---
Test Performed on : 01/30/2019 3:54:59 PM Test Reason : stroke like sx Blood Pressure : / mmHG Vent. Rate : 094 BPM Atrial Rate : 098 BPM P-R Int : 000 ms QRS Dur : 080 ms QT Int : 416 ms P-R-T Axes : 000 002 115 degrees QTc Int : 520 ms Atrial fibrillation. Low voltage QRS Cannot rule out Anterior infarct (cited on or before 18-NOV-2018) Abnormal ECG When compared with ECG of 18-NOV-2018 02:50, Nonspecific T wave abnormality now evident in Inferior leads T wave inversion now evident in Anterior leads Unconfirmed Result
[2019-01-30] MEDS: ROCEPHIN 1 GM in NS 50 ML IV SCH (18:21)
--- NOTE | 2019-01-30 18:24 | Diag Imaging Result Doc PS360 ---
CHEST-PORTABLE - 01/30/2019 INDICATION: cva COMPARISON: 11/18/2018 FINDINGS: Stable sternotomy wires. Heart size is top normal. There is some minimal patchy infiltrate in the lung bases bilaterally, nonspecific. No pneumothorax or significant pleural effusion. Pulmonary vascularity is grossly normal. IMPRESSION: Very minimal, nonspecific airspace opacities in the lung bases. Electronically signed by Bradley Santacruz 01/30/2019 6:22 PM
[2019-01-30 19:23] LABS: CK INDEX 0.8 (0.0-2.5); CK-MB 4.56 ng/mL (0.0-5.0)
[2019-01-30 21:04] LABS: BILIRUBIN URINE NEGATIVE (NEGATIVE); BLOOD URINE 4+ (NEGATIVE); CLARITY VERY CLOUDY (CLEAR); COLOR YELLOW; GLUCOSE URINE NEGATIVE (NEGATIVE); KETONE URINE NEGATIVE (NEGATIVE); LEUKOCYTES URINE 2+ (NEGATIVE); NITRITE URINE POSITIVE (NEGATIVE); UROBILINOGEN URINE NORMAL
[2019-01-30 21:08] LABS: URINE WBC TNTC /HPF (<10)
[2019-01-30 21:09] LABS: URINE BACTERIA 2+ /HFP; URINE CAST NONE SEEN /LPF; URINE CRYSTAL NONE SEEN /HPF; URINE EPITHELIAL CELLS <10 /HPF (<10); URINE RBC TNTC /HPF (<10); URINE SMALL ROUND CELLS TRANSITIONAL PRESENT; URINE SOURCE CATH; URINE YEAST NONE SEEN /HPF
[2019-01-30] MEDS: TYLENOL PO PRN (22:06)
[2019-01-31 00:05] LABS: CK INDEX 0.4 (0.0-2.5); CK-MB 2.3 ng/mL (0.0-5.0)
--- NOTE | 2019-01-31 01:00 | HISTORY AND PHYSICAL ---
CHIEF COMPLAINT: Generalized weakness and facial drooping. HISTORY OF PRESENT ILLNESS: The patient is an 88-year-old male who presented to the hospital with his daughter giving much history. The daughter relates that she went to pick him up that he seemed to be fine, but he was stating that he was weak. She noted that fell twice and was having difficulty using his walker. She then noticed some left facial drooping and left-sided weakness. The patient is nauseated, having trouble eating, he says he ate chicken and dumplings prior to coming to the hospital. This was after his symptoms had started. ALLERGIES: Sulfa. MEDICATIONS: Omeprazole, Flomax 0.4, Desyrel, Xanax 1 mg t.i.d., diltiazem 360, Lasix 20, Xarelto 15, hydrocodone p.r.n. REVIEW OF SYSTEMS: As noted above the patient started having some stroke-like symptoms earlier today. Complains of left facial drooping and left-sided weakness. He denies any confusion. Daughter denies any chest pains. Denies any knowledge of nausea, fevers or chills. He has had a recent urinary infection. Denies any constipation. Denies any skin rashes. The patient is chronically anxious, has chronic back and joint pain. PAST MEDICAL HISTORY: Atrial fibrillation, congestive heart failure, hypertension, chronic anxiety, history of prostate cancer, known coronary artery disease. FAMILY HISTORY: Noncontributory. SOCIAL HISTORY: The patient lives in assisted living. He has a daughter who is very attentive and helps take care of him. FAMILY HISTORY: Noncontributory. PHYSICAL EXAMINATION: VITAL SIGNS: Temperature 98, pulse 93, respiratory 20, BP 149/83. GENERAL: The patient is awake and alert. He is in no current respiratory distress. He is very pleasant to talk with. He does appear to be stressed and anxious. HEENT: Normocephalic. NECK: Supple. CARDIOVASCULAR: Regular rate. CHEST: Clear and nonlabored. ABDOMEN: Soft, nondistended. EXTREMITIES: Moves all extremities. He does have some slight weakness on the left compared to the right, although he is generally weak. NEUROLOGIC: He is awake and alert. He does have a little bit of facial drooping on the left compared to normal. Speech does not really sound any different than his usual. He appears oriented x3. LABS: WBC is 17, BUN 51, creatinine 3.1, glucose 158. ASSESSMENT: 1. Hyperglycemia. 2. Leukocytosis. 3. Piowv-gg-ydjjjjd renal failure. 4. Volume depletion. 5. Acute neurologic event. It certainly could be a stroke, but he also could have some type of infectious etiology given that his white count is elevated and his creatinine also is elevated. PLAN: We will admit the patient to the hospital, place him on IV fluids and antibiotics, check a urine culture. The patient is DNR and we will follow. cc: Jack Sidhu MD
[2019-01-31 06:15] LABS: HEMATOCRIT 36.7 % (42.0-52.0); HEMOGLOBIN 11.3 g/dL (14.0-18.0); MCH 23.3 PG (27-31); MCHC 30.8 g/dL (33-37); MCV 75.8 FL (81-99); MPV 12.4 FL (7.4-10.4); RBC 4.84 XMIL (4.7-6.1); WBC 11.08 X1000 (4.8-10.8)
[2019-01-31 06:39] LABS: ALBUMIN 2.8 g/dL (3.5-5.0); CREATININE 2.8 mg/dL (0.7-1.2); POTASSIUM 3.2 mmol/L (3.5-5.1); TOTAL BILIRUBIN 0.5 mg/dL (0.20-1.00)
[2019-01-31] MEDS ORDERED: VENTOLIN HFA INH PRN (06:57)
[2019-01-31] MEDS ORDERED: DESYREL PO PRN (06:57)
[2019-01-31] MEDS ORDERED: MIRALAX PO PRN (06:57)
[2019-01-31] MEDS ORDERED: PRILOSEC PO SCH (07:00)
[2019-01-31] MEDS: PRILOSEC PO SCH (07:49)
[2019-01-31] MEDS ORDERED: NS 1,000 ML IV SCH (08:00)
[2019-01-31] MEDS ORDERED: XARELTO PO SCH ×2 (09:00→17:00)
[2019-01-31] MEDS: CARDIZEM CD PO SCH (09:15)
[2019-01-31] MEDS: FLONASE NAS SCH (09:15)
[2019-01-31] MEDS: TEARISOL OPH SOLUTION OPH SCH ×2 (09:15→20:04)
[2019-01-31] MEDS: XANAX PO SCH ×3 (09:15→18:12)
[2019-01-31] MEDS: TYLENOL PO PRN (12:16)
[2019-01-31] MEDS: ROCEPHIN 1 GM in NS 50 ML IV SCH (18:12)
--- NOTE | 2019-01-31 19:03 | PROGRESS NOTE ---
DATE: 01/31/2019 SUBJECTIVE: Patient overall notes that he is feeling better. His speech sounds back to normal. His daughter notes that his face is back to normal. PHYSICAL EXAMINATION: Vital Signs: Temperature 98.5, pulse 54, respiratory 18, BP 128/70. General: Patient is awake. Currently, he is in no respiratory distress. He appears back to his baseline. Neurologic: He is awake, alert. He appears his baseline orientation. He has extremely poor hearing, but this is chronic. On exam, he is able to move all 4 extremities and appears to have the same strength bilaterally. HEENT: Normocephalic. Neck: Supple. CARDIOVASCULAR: Regular rate. No murmurs. Chest: Decreased but equal. Abdomen: Soft, nondistended. Extremities: Moves all extremities. ASSESSMENT: 1. Hyperglycemia. We will continue to follow. 2. Leukocytosis. 3. Presumed urinary tract infection. 4. Hypokalemia. 5. Acute on chronic renal failure. 6. Elevated troponin. 7. Volume depletion. PLAN: Expect patient has had some mild volume depletion, which may have elevated his creatinine as well as his troponins. His leukocytosis has resolved. We will continue to place him on antibiotics. We will get physical therapy involved. Hopefully, home over the next day or 2 if symptoms resolve. cc: Jack Sidhu MD
[2019-01-31] MEDS: FLOMAX PO SCH (20:04)
[2019-01-31] MEDS: XARELTO PO SCH (20:04)
[2019-01-31] MEDS: KLOR-CON PO PRN (21:02)
[2019-02-01] MEDS: PRILOSEC PO SCH (06:04)
[2019-02-01 06:21] LABS: HEMATOCRIT 35.2 % (42.0-52.0); MCH 23.6 PG (27-31); MCHC 31.3 g/dL (33-37); MCV 75.4 FL (81-99); MPV 12.8 FL (7.4-10.4); RBC 4.67 XMIL (4.7-6.1); RDW 18.7 % (11.5-14.5); WBC 8.85 X1000 (4.8-10.8)
[2019-02-01 06:32] LABS: ALBUMIN 2.4 g/dL (3.5-5.0); CALCIUM 7.7 mg/dL (8.8-10.2); CREATININE 2.1 mg/dL (0.7-1.2); POTASSIUM 3.3 mmol/L (3.5-5.1); TOTAL BILIRUBIN 0.4 mg/dL (0.20-1.00); TOTAL PROTEIN 6.7 g/dL (6.3-8.3)
[2019-02-01] MEDS: TYLENOL PO PRN (06:42)
[2019-02-01] MEDS: CARDIZEM CD PO SCH (08:17)
[2019-02-01] MEDS: TEARISOL OPH SOLUTION OPH SCH ×2 (08:18→20:06)
[2019-02-01] MEDS: XANAX PO SCH ×3 (08:18→17:22)
[2019-02-01] MEDS: KLOR-CON PO PRN (08:18)
[2019-02-01] MEDS: FLONASE NAS SCH (08:18)
[2019-02-01] MEDS: KLOR-CON PO ONE ×2 (08:18→11:12)
--- NOTE | 2019-02-01 11:58 | PROGRESS NOTE ---
DATE: 02/01/2019 SUBJECTIVE: The patient's daughter notes that he is feeling better. He has no focal weakness, but he is generally weak. His speech has improved. Denies any fevers. PHYSICAL EXAMINATION: Vital signs: Temperature 98, pulse 96, respiratory 18, blood pressure 149/80. General: The patient is awake, alert. He appears at his baseline mental status. HEENT: Normocephalic. Neck: Supple. Cardiovascular: Regular rate. Chest: Clear. Abdomen: Soft. Extremities: Moves all extremities. Neurologic: No focal changes but does have generalized weakness. ASSESSMENT: 1. Leukocytosis, improved. White count down to 8 from a total of 17. 2. Acute on chronic renal failure. Creatinine is actually improved. His baseline is somewhere between 1.7 and 2. He is currently back to 2.1. 3. Elevated troponin. 4. Hyperglycemia. 5. Hypokalemia. Will replace. 6. Acute neurologic event. Most likely this is metabolic encephalopathy causing his generalized weakness and confusion. However, we will check an MRI and make sure. Certainly his stroke would not have elevated his white count or his serum creatinine. cc: Jack Sidhu MD
--- NOTE | 2019-02-01 14:45 | Diag Imaging Result Doc PS360 ---
MRI BRAIN W/O CONTRAST - 02/01/2019 INDICATION: CVA? COMPARISON: Head CT 01/30/2019 FINDINGS: There is moderate patient motion artifact distorting the exam. There is no restricted diffusion. The ventricles and sulci are normal in size and contour. No intracranial mass or hemorrhage. There is some minimal patchy deep cerebral white matter hyperintensity on the T2 and FLAIR images suggesting nonspecifically adenosis, most likely chronic microvascular disease. Midline structures are unremarkable. IMPRESSION: No restricted diffusion to indicate acute stroke. Minimal cerebral white matter chronic microvascular disease. Electronically signed by Bradley Santacruz 02/01/2019 2:43 PM
[2019-02-01] MEDS: ROCEPHIN 1 GM in NS 50 ML IV SCH (17:21)
[2019-02-01] MEDS: FLOMAX PO SCH (20:06)
[2019-02-01] MEDS: XARELTO PO SCH (20:06)
[2019-02-02] MEDS: TYLENOL PO PRN ×2 (02:32→13:37)
[2019-02-02] MEDS ORDERED: APRESOLINE IV ONE ×3 (04:13→04:49)
[2019-02-02] MEDS: PRILOSEC PO SCH (06:11)
[2019-02-02 07:27] LABS: BASO# 0.01 X1000 (0.0-0.2); BASO% 0.1 % (0.0-0.8); EOS# 0.02 X1000 (0.0-0.7); EOS% 0.2 % (0.0-10.0); HEMATOCRIT 38.2 % (42.0-52.0); IMM GRAN# 0.05 X1000 (0.0-0.04); IMM GRAN% 0.5 % (0.0-0.5); LYMPH# 0.71 X1000 (1.2-3.4); LYMPH% 7.8 % (20.5-51.1); MCH 23.6 PG (27-31); MCHC 31.4 g/dL (33-37); MCV 75.2 FL (81-99); MONO# 1.01 X1000 (0.11-0.59); MONO% 11.1 % (1.7-9.3); MPV 12.5 FL (7.4-10.4); NEUT# 7.31 X1000 (1.4-6.5); NEUT% 80.3 % (42.2-75.2); PLT 194 X1000 (130-400); RBC 5.08 XMIL (4.7-6.1); RDW 18.9 % (11.5-14.5); WBC 9.11 X1000 (4.8-10.8)
[2019-02-02 07:33] LABS: ALBUMIN 2.6 g/dL (3.5-5.0); CALCIUM 8.3 mg/dL (8.8-10.2); CREATININE 1.9 mg/dL (0.7-1.2); PHOSPHORUS 2.8 mg/dL (2.7-4.5); POTASSIUM 3.7 mmol/L (3.5-5.1)
[2019-02-02] MEDS: CARDIZEM CD PO SCH (07:49)
[2019-02-02] MEDS: XANAX PO SCH ×5 (07:50→21:45)
[2019-02-02] MEDS: FLONASE NAS SCH ×2 (07:50→10:54)
[2019-02-02] MEDS: TEARISOL OPH SOLUTION OPH SCH ×3 (07:50→20:19)
[2019-02-02 08:33] LABS: EOS 1 % (1-10); LYMPHS 10 % (21-51); MONO 9 % (1-9); SEGS 80 % (42-75)
[2019-02-02] MEDS: CARDIZEM 125/NS 125 MG/125 ML IVPB IV SCH ×2 (11:56→19:22)
[2019-02-02] MEDS ORDERED: BLISTEX MEDICATED BERRY LIP BALM TOP ONE (13:34)
[2019-02-02] MEDS: ROCEPHIN 1 GM in NS 50 ML IV SCH (18:04)
[2019-02-02] MEDS: XARELTO PO SCH (20:19)
[2019-02-02] MEDS: FLOMAX PO SCH (20:19)
--- NOTE | 2019-02-03 00:02 | PROGRESS NOTE ---
DATE: 02/02/2019 SUBJECTIVE: Patient himself has no new complaints. The daughter is not in the room currently. PHYSICAL EXAMINATION: Vital Signs: Temperature 97.6 degrees, pulse 63, respiratory 18, BP 140/95. General: Patient is awake, alert. He is very pleasant to talk with. He is extremely hard of hearing. HEENT: Normocephalic, atraumatic. Neck: Supple. Cardiovascular: Initially, patient appeared regular rate and rhythm. However, currently he is in atrial fibrillation with RVR with a heart rate in the 110s to 140s. Chest: Clear and nonlabored. Positive rhonchi. Abdomen: Soft, nondistended. Extremities: Moves all extremities. ASSESSMENT: 1. Leukocytosis, resolved. White count is down to 9. 2. Anemia of chronic disease. 3. Acute on chronic renal failure. Creatinine actually has improved back to 1.9 which is essentially his baseline. 4. Escherichia coli urinary tract infection, extended spectrum beta-lactamase negative. We will continue on Rocephin. 5. Atrial fibrillation with rapid ventricular response. We will move to the unit, place him back on a Cardizem drip. He has done this in the past. Hopefully, he can slow down and convert back to p.o. Cardizem soon. cc: Jack Sidhu MD
[2019-02-03 04:46] LABS: ALBUMIN 2.4 g/dL (3.5-5.0); CALCIUM 8.2 mg/dL (8.8-10.2); CREATININE 2.4 mg/dL (0.7-1.2); PHOSPHORUS 4.4 mg/dL (2.7-4.5); POTASSIUM 3.6 mmol/L (3.5-5.1)
[2019-02-03 05:07] LABS: BASO# 0.01 X1000 (0.0-0.2); BASO% 0.1 % (0.0-0.8); EOS# 0.03 X1000 (0.0-0.7); EOS% 0.3 % (0.0-10.0); HEMATOCRIT 38.4 % (42.0-52.0); HEMOGLOBIN 12.3 g/dL (14.0-18.0); IMM GRAN# 0.07 X1000 (0.0-0.04); IMM GRAN% 0.6 % (0.0-0.5); LYMPH% 6.2 % (20.5-51.1); MCH 23.7 PG (27-31); MCV 74.1 FL (81-99); MONO# 0.94 X1000 (0.11-0.59); MONO% 8.4 % (1.7-9.3); MPV 12.5 FL (7.4-10.4); NEUT# 9.48 X1000 (1.4-6.5); NEUT% 84.4 % (42.2-75.2); PLT 232 X1000 (130-400); RBC 5.18 XMIL (4.7-6.1); RDW 18.8 % (11.5-14.5); WBC 11.23 X1000 (4.8-10.8)
[2019-02-03] MEDS: XANAX PO SCH ×3 (05:34→20:46)
[2019-02-03 05:51] LABS: BANDS 3 % (0-1); LYMPHS 8 % (21-51); MONO 3 % (1-9); SEGS 86 % (42-75)
[2019-02-03 05:52] LABS: ANISOCYTOSIS 1+; HYPOCHROM 1+; MICROCYTOSIS 2+
[2019-02-03] MEDS: PRILOSEC PO SCH (06:13)
[2019-02-03] MEDS: FLONASE NAS SCH (08:14)
[2019-02-03] MEDS: TEARISOL OPH SOLUTION OPH SCH ×2 (08:14→20:47)
[2019-02-03] MEDS: NS 1,000 ML IV SCH ×2 (11:00→23:10)
[2019-02-03] MEDS: CARDIZEM CD PO SCH (11:00)
[2019-02-03] MEDS: ROCEPHIN 1 GM in NS 50 ML IV SCH (18:16)
[2019-02-03] MEDS: FLOMAX PO SCH (20:46)
[2019-02-03] MEDS: XARELTO PO SCH (20:46)
--- NOTE | 2019-02-03 22:06 | PROGRESS NOTE ---
DATE: 02/03/2019 SUBJECTIVE: Patient has no new complaints. PHYSICAL EXAM: Temperature 97, pulse 63, respiratory 18, BP 140/95.General: Patient is awake, alert. He is currently in sinus rhythm. Denies any chest pain. States overall he is feeling better. HEENT: Normocephalic. Neck: Supple. Cardiovascular: Regular rate. Chest: Clear, nonlabored. Abdomen: Soft, nondistended. Extremities: Moves all extremities. ASSESSMENT: 1. Acute on chronic renal failure. Creatinine has continued to climb after we stopped his intravenous fluids. We will restart his IV fluids and follow. 2. Dysrhythmia. Patient currently is back in sinus rhythm but prior to moving out of the intensive care unit he did have a 7 beat run of ventricular tachycardia. We will ask Cardiology for opinion on how to change his medications. 3. Extended spectrum beta-lactamase negative Escherichia coli. We will continue antibiotics for urinary tract infection. Today is day 4. cc: Jack Sidhu MD
[2019-02-04] MEDS: XANAX PO SCH ×3 (03:49→20:15)
[2019-02-04 06:03] LABS: HEMATOCRIT 37.6 % (42.0-52.0); HEMOGLOBIN 11.9 g/dL (14.0-18.0); MCH 23.6 PG (27-31); MCHC 31.6 g/dL (33-37); MCV 74.6 FL (81-99); MPV 13.1 FL (7.4-10.4); RBC 5.04 XMIL (4.7-6.1); RDW 18.9 % (11.5-14.5); WBC 10.77 X1000 (4.8-10.8)
[2019-02-04 06:15] LABS: ALBUMIN 2.4 g/dL (3.5-5.0); CREATININE 2.3 mg/dL (0.7-1.2); MAGNESIUM 2.1 mg/dL (1.5-2.7); POTASSIUM 3.7 mmol/L (3.5-5.1); TOTAL BILIRUBIN 0.3 mg/dL (0.20-1.00); TOTAL PROTEIN 6.8 g/dL (6.3-8.3)
[2019-02-04] MEDS: PRILOSEC PO SCH (06:52)
[2019-02-04] MEDS: TEARISOL OPH SOLUTION OPH SCH ×2 (09:10→20:15)
--- NOTE | 2019-02-04 10:15 | Diag Imaging Result Doc PS360 ---
EXAM: US RENAL 2 (RETROPER) COMPLETE HISTORY: ? obstruction TECHNIQUE: Renal ultrasound COMPARISON: None. FINDINGS: The right kidney measures 11.3 x 7.1 x 6.6 cm. There are scattered renal cysts. The largest measures 2.6 cm. There is mild to moderate dilatation to the renal pelvis. No renal stone identified. Normal cortical thickness. The urinary bladder is distended. No focal abnormality. The left kidney contains multiple large cysts measuring up to 7.8 cm. The exact size of the kidneys difficult due to the multiple large cysts. There is a small amount of normal renal tissue. No definite hydronephrosis. IMPRESSION: 1.Mild to moderate right-sided hydronephrosis 2.Multiple bilateral renal cysts. These are more numerous and larger on the left kidney. Electronically signed by Dennis Lozada 02/04/2019 10:13 AM
[2019-02-04] MEDS: CARDIZEM CD PO SCH (11:49)
[2019-02-04] MEDS: FLONASE NAS SCH (11:49)
--- NOTE | 2019-02-04 19:33 | CONSULTATION ---
DATE OF CONSULTATION: 02/04/2019 IMPRESSION: 1. Reported episode of brief wide complex tachycardia. Consider nonsustained ventricular tachycardia versus atrial fibrillation with aberrancy. No history of syncope or palpitations. 2. Chronic atrial fibrillation. 3. Atherosclerotic coronary disease with previous coronary bypass grafting in 1998. 4. Hypertension. 5. Prostate cancer. RECOMMENDATIONS: 1. Consideration given to possibly switching patient to metoprolol either alone or in combination with reduced dose of diltiazem. This was discussed with the patient and the family and they expressed preference to leave his medical management as it currently is as he has been on this for some time. 2. Continue anticoagulation with Xarelto 50 mg daily as tolerated. 3. Conservative cardiovascular management overall. Patient does not want heroic measures and is a "do not resuscitate". HISTORY: This 88-year-old white male with past history of previous coronary bypass grafting in 1998, chronic atrial fibrillation, hypertension, prostate cancer, was admitted several days ago with weakness and difficulty standing. He was having some difficulty using his walker. He has been found to have urinary tract infection. He actually improved after hospitalization but had an episode of being weak that recurred. Family relates that he was not speaking well. Brain imaging studies have not revealed any evidence of acute cerebrovascular accident. He again has improved. While monitored on telemetry he was observed demonstrate a 7 beat run of wide complex tachycardia. This is not yet scanned into the electronic medical record. There is no palpitation. He denies syncope. There has been no chest pain. The patient lives independently with family close by. They are very attentive and are checking on him daily in regards to his medications, his weight and the presence of any tendency for swelling. He has had progressive decline in his renal function. 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 PAST MEDICAL HISTORY: 1. Atherosclerotic coronary disease and previous coronary bypass grafting 1998. 2. Chronic atrial fibrillation. 3. Chronic kidney disease currently stage 4 bordering on stage 5. 4. Hypertension, longstanding. 5. Prostate cancer. 6. He is allergic or intolerant to sulfa. MEDICATIONS PRIOR TO ADMISSION: As listed. SOCIAL HISTORY: The patient lives in assisted living. He does not smoke or use alcohol. His daughter lives close by and is very helpful in assisting him. FAMILY HISTORY: Negative for premature coronary disease. REVIEW OF SYSTEMS: Pulmonary: Negative. Gastrointestinal: Negative. Constitutional: Negative beyond history of present illness. Remainder of review of systems negative/noncontributory with 14 total systems reviewed. PHYSICAL EXAMINATION: General: This is a pleasant, elderly white male in no distress who is hard of hearing despite his hearing aids. Blood pressure 120/80, heart rate 100 and irregular with ECG monitor showing atrial fibrillation. HEENT: Extraocular movements intact. Mucous membranes are moist. Neck: Supple. Jugular venous distention suggests central venous pressure around 8 to 10. Carotid bruits cannot be appreciated. Chest: Clear to auscultation bilaterally. Cardiac: Reveals an irregular rate and rhythm without appreciable murmur or gallop. Abdomen: Soft. Bowel sounds audible. Extremities: Without edema. Neurologic: Reveals him to be awake and responsive. He moves all 4 extremities equally well. DATA: A 12-lead electrocardiogram demonstrates atrial fibrillation and low-voltage QRS. LABORATORY DATA: Includes a white blood cell count 10.77, hematocrit 37.6, hemoglobin 11.9, platelet count 268,000. Sodium 138, potassium 3.7, chloride 103, carbon dioxide 19, BUN 50, creatinine 2.3, glucose 135, magnesium 2.1. cc: MD Jack Toussaint MD
[2019-02-04] MEDS: ROCEPHIN 1 GM in NS 50 ML IV SCH (20:06)
[2019-02-04] MEDS: XARELTO PO SCH (20:15)
[2019-02-04] MEDS: FLOMAX PO SCH (20:15)
--- NOTE | 2019-02-04 21:21 | PROGRESS NOTE ---
DATE: 02/04/2019 SUBJECTIVE: This morning patient is much more somnolent than he has been in the past. PHYSICAL: Temperature 97 degrees, pulse 63, BP 140/95.General: Patient is somnolent. He does not seem to be interested in answering questions. HEENT: Normocephalic. Neck: Supple. CV: Currently appears sinus rhythm. Chest: Clear nonlabored. Abdomen: Soft, nondistended. ASSESSMENT: 1. Hyperglycemia. 2. Extended spectrum beta-lactamase negative Escherichia coli urinary tract infection. 3. Acute on chronic renal failure. Creatinine had been elevated 3.1 and began improving down to 1.9 currently back 2.4. Do not feel as though this is from volume depletion. Certainly may be from obstruction. We will check a renal ultrasound. 4. Elevated troponin. 5. Leukocytosis resolved. 6. Do not resuscitate . 7. Benign prostatic hypertrophy. 8. Atrial fibrillation. PLAN: Will continue patient on his current medications, will check a renal ultrasound, will continue IV fluids. Discussed with the daughter that certainly concerned that he continues to decline and we may need to consider hospice care. This evening interestingly Mr. Nava is much more awake, alert stating that he is hungry and is talkative. We will continue to follow. 35 minutes was spent in total care today. cc: Jack Sidhu MD
[2019-02-05] MEDS: XANAX PO SCH ×3 (05:05→20:36)
[2019-02-05] MEDS: PRILOSEC PO SCH (06:36)
[2019-02-05 07:17] LABS: HEMATOCRIT 35.7 % (42.0-52.0); HEMOGLOBIN 10.9 g/dL (14.0-18.0); MCH 23.2 PG (27-31); MCHC 30.5 g/dL (33-37); MPV 12.6 FL (7.4-10.4); RBC 4.7 XMIL (4.7-6.1); RDW 19.2 % (11.5-14.5); WBC 10.1 X1000 (4.8-10.8)
[2019-02-05 07:36] LABS: ALBUMIN 2.3 g/dL (3.5-5.0); CALCIUM 7.8 mg/dL (8.8-10.2); CREATININE 1.8 mg/dL (0.7-1.2); POTASSIUM 3.7 mmol/L (3.5-5.1); TOTAL BILIRUBIN 0.3 mg/dL (0.20-1.00); TOTAL PROTEIN 5.6 g/dL (6.3-8.3)
[2019-02-05] MEDS: FLONASE NAS SCH (08:15)
[2019-02-05] MEDS: CARDIZEM CD PO SCH (08:16)
[2019-02-05] MEDS: TEARISOL OPH SOLUTION OPH SCH ×2 (08:16→20:36)
[2019-02-05] MEDS: ROCEPHIN 1 GM in NS 50 ML IV SCH (18:15)
--- NOTE | 2019-02-05 18:36 | PROGRESS NOTE ---
DATE: 02/05/2019 SUBJECTIVE: Patient is much more alert and oriented this morning. He is sitting up in the bed, eating breakfast. He is in no respiratory distress. OBJECTIVE: Vital signs: He is afebrile. Pulse in the 80s to 90s. Blood pressure is stable. General: Patient is awake, alert. He is in no respiratory distress. He has had a significant improvement from yesterday. In fact, he appears back to his typical baseline. HEENT: Normocephalic. Neck: Supple. Cardiovascular: Regular rate. Chest: Clear. Abdomen: Soft. Extremities: Moves all extremities. ASSESSMENT: 1. Escherichia coli urinary tract infection. 2. Acute on chronic renal failure. His creatinine is actually back to his baseline at 1.8. He is having good urine output. 3. Adult failure to thrive. Patient yesterday certainly looked as though he needed hospice care. Today he is appropriate for home with home health. 4. Hypertension. 5. Cardiac dysrhythmia. His heart rate and rhythm appear much more calm and stable. We appreciate Cardiology's input. PLAN: Hopefully patient can discharge out of the ICU if a bed is available today and hopefully home over the next day or 2. cc: Jack Sidhu MD
[2019-02-05] MEDS: FLOMAX PO SCH (20:36)
[2019-02-05] MEDS: XARELTO PO SCH (20:36)
[2019-02-06] MEDS: XANAX PO SCH ×3 (04:32→20:31)
[2019-02-06] MEDS: PRILOSEC PO SCH (06:04)
[2019-02-06] MEDS: TEARISOL OPH SOLUTION OPH SCH ×2 (09:22→20:30)
[2019-02-06] MEDS: FLONASE NAS SCH (09:22)
[2019-02-06] MEDS: CARDIZEM CD PO SCH (09:22)
[2019-02-06] MEDS: TYLENOL PO PRN (12:50)
--- NOTE | 2019-02-06 13:11 | PROGRESS NOTE ---
DATE: 02/06/2019 SUBJECTIVE: Patient overall notes he is feeling better. He is eager to get to the floor and start participating in physical therapy. OBJECTIVE: Vital Signs: On physical exam, temperature 98.1, pulse 76, respiratory 20, BP 179/79. General: Patient is awake, alert. He is in no current respiratory distress. Very pleasant to talk with. HEENT: Normocephalic. Neck: Supple. CV: Regular rate. Chest: Clear, nonlabored. Abdomen: Soft, nondistended. Extremities: Moves all extremities. ASSESSMENT: 1. Extended spectrum beta lactamase--negative Escherichia coli urinary tract infection. 2. Acute on chronic renal failure. 3. Generalized adult failure to thrive. 4. Cardiac dysrhythmia. 5. Benign prostatic hypertrophy. 6. Intermittent atrial fibrillation. 7. Others. PLAN: Overall patient is stable and is doing well. We will transition him to the floor so the physical therapy can participate and hopefully allow him to get up and begin ambulating. Hopefully, home over the next 1 or 2 days. cc: Jack Sidhu MD
[2019-02-06] MEDS: ROCEPHIN 1 GM in NS 50 ML IV SCH (18:24)
[2019-02-06] MEDS: XARELTO PO SCH (20:30)
[2019-02-06] MEDS: FLOMAX PO SCH (20:30)
[2019-02-07] MEDS: XANAX PO SCH ×3 (03:43→20:02)
[2019-02-07] MEDS: PRILOSEC PO SCH (06:31)
[2019-02-07] MEDS: TEARISOL OPH SOLUTION OPH SCH ×2 (09:19→20:02)
[2019-02-07] MEDS: FLONASE NAS SCH (09:19)
[2019-02-07] MEDS: CARDIZEM CD PO SCH (09:19)
--- NOTE | 2019-02-07 16:27 | Diag Imaging Result Doc PS360 ---
EXAM: HAND COMPLETE LEFT - 02/07/2019 HISTORY: fall TECHNIQUE: Left hand three views COMPARISON: None. FINDINGS: Positioning is mildly suboptimal. There are some osteoarthritic changes. There is no fracture or dislocation identified. There is tiny metallic density material between the bases of the index and middle fingers, but is not clear if this is located on the skin or subcutaneous tissues IMPRESSION: No evidence of fracture or dislocation. Electronically signed by Abisai Estevez 02/07/2019 4:23 PM
[2019-02-07] MEDS: ROCEPHIN 1 GM in NS 50 ML IV SCH (17:43)
--- NOTE | 2019-02-07 18:40 | PROGRESS NOTE ---
DATE: 02/07/2019 SUBJECTIVE: Patient overall seems to be doing a little bit better. His family notes that he is feeling better. PHYSICAL EXAMINATION: Vital Signs: Reviewed. General: He is awake, alert. He is in no current distress. HEENT: Normocephalic. Neck: Supple. Cardiovascular: Regular rate. Chest: Clear. Abdomen: Soft. Extremities: Moves all extremities. ASSESSMENT: 1. Cardiac dysrhythmia. Patient continues to have some difficulties with his cardiac arrhythmias. He has had several episodes during the hospital stay. He had ventricular fibrillation and ventricular tachycardia. Thankfully, these were nonsustained. Cardiology had previously seen the patient and the family declined any further workup. At this point, we will discontinue his telemetry as we are not going to change anything, regardless of what the telemetry shows. 2. Hyperglycemia, improved. 3. Acute on chronic renal failure, stable. 4. Escherichia coli extended-spectrum beta lactamase negative urinary tract infection. PLAN: We will continue the patient in the hospital, continue physical therapy, and continue to follow. Hopefully, he will be able to improve his ambulation over the next day or so. He can be discharged home. We will continue to follow. cc: Jack Sidhu MD
[2019-02-07] MEDS: XARELTO PO SCH (20:02)
[2019-02-07] MEDS: FLOMAX PO SCH (20:02)
[2019-02-08] MEDS: XANAX PO SCH ×3 (04:05→21:15)
[2019-02-08] MEDS: PRILOSEC PO SCH (06:11)
[2019-02-08] MEDS: CARDIZEM CD PO SCH (07:59)
[2019-02-08] MEDS: TEARISOL OPH SOLUTION OPH SCH ×2 (07:59→21:15)
[2019-02-08] MEDS: FLONASE NAS SCH (08:00)
--- NOTE | 2019-02-08 12:11 | PROGRESS NOTE ---
DATE: 02/08/2019 SUBJECTIVE: The patient himself has no complaints. He is asking to go home; however, he has not been out of bed. Family notes he is still very tired and fatigued. He is short of breath with any movement. OBJECTIVE: Vital Signs: Temperature is 98.2, pulse 65, respiratory 18, BP 144/82. General: The patient is awake, alert, currently in no respiratory distress. HEENT: Normocephalic. Neck: Supple. Cardiovascular: Regular rate. Chest: Clear. Abdomen: Soft. Extremities: Moves all extremities. Neurologic: No changes. ASSESSMENT: 1. Cardiac dysrhythmia continues to be problematic, but currently is stable. 2. Adult failure to thrive with generalized weakness. 3. Escherichia coli urinary tract infection currently is stable. We will stop his antibiotics at the present time. 4. Do not resuscitate level 1. PLAN: We will continue the patient in the hospital. Continue to follow. Continue physical therapy. Hopefully home with hospice when arrangements can be made. cc: Jack Sidhu MD
[2019-02-08] MEDS: XARELTO PO SCH (21:15)
[2019-02-08] MEDS: FLOMAX PO SCH (21:15)
[2019-02-09] MEDS: XANAX PO SCH (05:14)
[2019-02-09] MEDS: PRILOSEC PO SCH (06:08)
--- NOTE | 2019-02-09 07:32 | PROGRESS NOTE ---
DATE: 02/09/2019 SUBJECTIVE: Patient himself notes that he is feeling better, feeling fine. However, he is not getting out of bed without encouragement, and even then he is still very weak. PHYSICAL EXAM: Vital signs: Temperature 98.2, pulse 65, respiratory 20, BP 144/82. General: Patient is awake. He is in no current respiratory distress. He is quite ill-appearing due to his chronic status and his age. HEENT: Normocephalic. Neck: Supple. Cardiovascular: Regular rate. Chest: Clear, nonlabored. Abdomen: Soft. Extremities: Moves all extremities, although generalized weakness. ASSESSMENT: 1. Escherichia coli urinary tract infection, resolved. 2. Generalized weakness. 3. Acute on chronic renal failure. 4. DNR level 1. 5. Cardiac dysrhythmia, continues to be problematic but currently stable. 6. Others. PLAN: We will continue patient in the hospital. Continue to follow. Hopefully, he can discharge home later today if not tomorrow. The family is working on getting everything set up with hospice. cc: Jack Sidhu MD
[2019-02-09 08:05] VITALS: BP 152/88
[2019-02-09] MEDS: FLONASE NAS SCH (08:33)
[2019-02-09] MEDS: TEARISOL OPH SOLUTION OPH SCH (08:33)
[2019-02-09] MEDS: CARDIZEM CD PO SCH (08:33)
--- NOTE | 2019-02-17 20:26 | DISCHARGE SUMMARY ---
ADMISSION DATE: 01/30/2019 DISCHARGE DATE: 02/09/2019 DISCHARGE DIAGNOSES: 1. Escherichia coli urinary tract infection. 2. Adult failure to thrive, secondary to Escherichia coli urinary tract infection. 3. Metabolic encephalopathy, secondary to Escherichia coli urinary tract infection, resolved. 4. Frequent falls. 5. Do Not Resuscitate. 6. Hyperglycemia. 7. Recent transient ischemic attack. 8. Metabolic encephalopathy. 9. Chronic poor hearing. 10. Others. CONSULTATIONS: None. PROCEDURES: None. BRIEF HOSPITAL COURSE: The patient is an 88-year-old male who presented to the ER secondary to nausea, vomiting, abdominal pain, and tremors. He presented to the ER with his daughter. The daughter notes that she had gone to pick him up, and he was so weak that she could not get him to stand. He was confused and disoriented, which is not normal for him. He kept falling back asleep as well, which is not normal. She had just recently seen him and denied any knowledge of illness, denied any nausea, fevers, chills, or urinary issues. However, he was subsequently diagnosed with a UTI that ultimately grew Escherichia coli. He was placed on antibiotics. He continued to improve. He did have an episode in the hospital where he went into atrial fibrillation with rapid ventricular response. This was easily resolved. On discharge, he is awake, alert. He is back to his usual self, although he is still extremely fatigued and tired, and is not participating with physical therapy. He is very hard of hearing, which certainly makes participation more difficult. DISPOSITION: Greater than 40 minutes was spent in total care. The patient will be discharged home with hospice. Discussed with patient's daughter that hopefully he will improve, but certainly at this point that is not expected. Overall, the patient has improved from admission, but is still not back to his preadmission status. No real changes were made on his medications, diet, or activity otherwise. cc: Jack Sidhu MD
== END 2019-02-09 11:20 | disposition hospice, home (50) | DRG 871 ==
LOC: P.ED 15:46 → SUATTDRO 15:47 → P.MEDSURG 15:47 → P.ICU 02-02 11:39 → P.MEDSURG 02-06 16:25
PROVIDERS: ADMIT Family Medicine; ATTEND Family Medicine
CPT/HCPCS: 36415; 70450; 70551; 71010; 71045; 73130; 76770; 80053; 80061; 80069; 81001; 82550; 82553; 82948; 83605; 83721; 83735; 84484; 85025; 85027; 85610; 85730; 87040; 87077; 87088; 87186; 93005; 94640; 94761; 96365; 97163; 97530; 99285; A9270; J0360; J0696; J7030; XXXXX